=== PATIENT | male | born 1970 ===

== ENCOUNTER 2019-05-31 19:11 | Outpatient (REF) | payer BC, SELFPAY ==
[2019-05-31 21:19] LABS: Calculated LDL 78 mg/dL (<100); Cholesterol 154 mg/dL (<200); HDL Cholesterol 28 mg/dL (40-60); Triglyceride 241 mg/dL (<150)
[2019-05-31 21:21] LABS: Vitamin B12 > 2000 pg/mL (193-986)
== END 2019-05-31 19:31 ==
LOC: NCHCN 19:11
PROVIDERS: Visit Provider Internal Medicine
DX: E53.8 Deficiency of other specified B group vitamins (principal)
CPT/HCPCS: 80061; 82607